=== PATIENT | female | born 1970 | race American Indian/Alaskan Native ===

== ENCOUNTER 2018-11-19 06:09 | Emergency (ER) | payer SELFPAY ==
[2018-11-19 06:20] VITALS: BP 131/79
--- NOTE | 2018-11-19 07:52 | Emergency Department Report ---
ED Female HPI - General Chief complaint: Skin/Abscess/Foreign Body Stated complaint: FB IN VAGINA Time Seen by Provider: 11/19/18 07:46 Source: patient Mode of arrival: Ambulatory Limitations: No Limitations - History of Present Illness Initial comments: A 48-year-old female to emergency Department complaining of pelvic pain, suspicious of having a condom. The vaginal canal about 3-4 days ago. States that she tried to remove it, but does not recall seeing in the condom, out from her vaginal area. MD Complaint: vaginal discharge, pelvic pain -: Gradual, days(s) (3) Location: suprapubic Radiation: suprapubic Severity: moderate Quality: cramping Consistency: constant Improves with: none Worsens with: urination Are you Now?: No Associated Symptoms: vaginal discharge, dysuria, other. denies: loss of appetite, hematuria - Related Data Sexually active: No Previous Rx's Medication Instructions Recorded Last Taken Type Fluconazole [Diflucan TAB] 150 mg PO ONCE #1 tablet 11/19/18 Unknown Rx Ketorolac [Toradol] 10 mg PO Q6H PRN #10 tablet 11/19/18 Unknown Rx Allergies Allergy/AdvReac Type Severity Reaction Status Date / Time No Known Allergies Allergy Unverified 11/19/18 06:19 ED Review of Systems ROS: Stated complaint: FB IN VAGINA Other details as noted in HPI Comment: All other systems reviewed and negative ED Past Medical Hx - Past Medical History Previous Medical History?: No - Surgical History Past Surgical History?: No - Social History Smoking Status: Never Smoker Substance Use Type: None - Medications Home Medications: Home Medications Medication Instructions Recorded Confirmed Last Taken Type Fluconazole [Diflucan TAB] 150 mg PO ONCE #1 tablet 11/19/18 Unknown Rx Ketorolac [Toradol] 10 mg PO Q6H PRN #10 tablet 11/19/18 Unknown Rx ED Physical Exam - General Limitations: No Limitations General appearance: alert, in no apparent distress - Head Head exam: Present: atraumatic, normocephalic - Eye Eye exam: Present: normal appearance, PERRL, EOMI Pupils: Present: normal accommodation - ENT ENT exam: Present: normal exam, normal orophraynx, mucous membranes moist, TM's normal bilaterally - Neck Neck exam: Present: normal inspection - Respiratory Respiratory exam: Present: normal lung sounds bilaterally. Absent: respiratory distress, wheezes, rales, rhonchi, chest wall tenderness, accessory muscle use, decreased breath sounds - Cardiovascular Cardiovascular Exam: Present: regular rate, normal rhythm. Absent: systolic murmur, diastolic murmur, rubs, gallop - GI/Abdominal GI/Abdominal exam: Present: soft, tenderness (suprapubic region with palpation. No CVA tenderness noted), normal bowel sounds - Speculum exam: Present: erythema, vaginal discharge, cervical discharge. Absent: vaginal bleeding, foreign body, laceration - Extremities Exam Extremities exam: Present: normal inspection - Back Exam Back exam: Present: normal inspection - Neurological Exam Neurological exam: Present: alert, oriented X3, CN II-XII intact - Psychiatric Psychiatric exam: Present: normal affect, normal mood - Skin Skin exam: Present: warm, dry, intact, normal color. Absent: rash ED Course Vital Signs 11/19/18 06:16 Temperature 98.4 F Pulse Rate 59 L Respiratory 18 Rate Blood Pressure 131/79 O2 Sat by Pulse 100 Oximetry ED Medical Decision Making - Radiology Data Radiology results: report reviewed (dorsum reported no uterine fibroids and ovarian cyst) - Medical Decision Making 48-year-old [place] female, with the potential foreign body to her vaginal canal which was not visualized on examination. Ultrasound reported did review her (of which she states she has had a history and uterine fibroid which was new to her history, per patient. Advised of the importance of following up with [employer]. She is stable at this present time. Pain is controlled no acute distress or eminent danger. No suggestion of an emergent condition present at this time. Critical care attestation.: If time is entered above; I have spent that time in minutes in the direct care of this critically ill patient, excluding procedure time. ED Disposition Clinical Impression: Vaginal discharge, Ovarian cyst, Leiomyoma Disposition: - TO HOME OR SELFCARE Is pt being admited?: No Does the pt Need Aspirin: No Condition: Stable Instructions: Uterine Fibroids (ED), Vaginitis (ED), Ovarian Cyst (ED) Prescriptions: Fluconazole [Diflucan TAB] 150 mg PO ONCE #1 tablet Ketorolac [Toradol] 10 mg PO Q6H PRN #10 tablet PRN Reason: Pain Referrals: MARYANA CRARERO MD [Primary Care Provider] - 3-5 Days
[2018-11-19 07:53] LABS: Bilirubin,Urine NEG (Negative); Blood,Urine NEG (Negative); Color,Urine Yellow (Yellow); Mucus,Urine 1+ /HPF; Protein,Urine <15 mg/dL mg/dL (Negative); Urobilinogen,Urine < 2.0 mg/dL (<2.0)
[2018-11-19 08:04] LABS: HCG Qualitative,Urine Negative (Negative)
--- NOTE | 2018-11-19 09:36 | Ultrasound Report ---
ULTRASOUND PELVIS, COMPLETE INDICATION: Pelvic pain, vaginal discharge COMPARISON: No relevant prior imaging study available. FINDINGS: Transabdominal and transvaginal imaging was performed. Uterus: Uterus measures 10.3 x 5.9 x 5.4 cm. Endometrial echo complex measures 12-13 mm.. Heterogeneo usly hypoechoic 2.5 cm focus in the uterine fundus may be a uterine fibroid. Right ovary: Not visualized. Left ovary: There is a 2 cm left ovarian cyst. Flow is seen left ovary.. Additional findings: There is no free fluid in the pelvis. Urinary bladder is unremarkable. IMPRESSION: 1. The endometrial echo complex measures 12-13 mm which is at the upper limits of normal for a premen opausal patient. 2. Probable 2.5 cm uterine fibroid. 3. 2 cm left ovarian cyst. 4. The right ovary is not visualized.. Signer Name: Brain Tan MD Signed: 11/19/2018 9:32 AM Workstation Name: [id number]
== END 2018-11-19 12:33 | disposition home or self-care (01) ==
LOC: ED 06:09
DX: N83.202 Unspecified ovarian cyst, left side (principal); D25.9 Leiomyoma of uterus, unspecified; Z79.899 Other long term (current) drug therapy
CPT/HCPCS: 76830; 76856; 81001; 81025

== ENCOUNTER 2021-03-02 12:53 | Emergency (ER) | payer SELFPAY ==
--- NOTE | 2021-03-02 13:06 | Emergency Department Report ---
ED ENT HPI - General Chief complaint: Dental/Oral Stated complaint: TOOTH BROKEN/FACE SWOLLEN Time Seen by Provider: 03/02/21 13:00 Source: patient Mode of arrival: Ambulatory Limitations: No Limitations - History of Present Illness Initial comments: 51-year-old -Spanish female presents to the emergency room complaining of right upper jaw pain and swelling since Wednesday. Patient states she feels she broken a tooth. She has tried taking Tylenol ibuprofen without much relief. She does have a primary dentist but will have to make an appointment with them this week. She denies any other complaints. MD complaint: tooth pain Onset/Timin -: days(s) Location: tooth # (4) Severity: severe Severity scale (0 -10): 8 Quality: stabbing, sharp Consistency: constant Improves with: none Worsens with: eating Context- Dental: trauma - Related Data Previous Rx's Medication Instructions Recorded Last Taken Type Fluconazole (Nf) [Diflucan TAB] 150 mg PO ONCE #1 tablet 11/19/18 Unknown Rx Amoxicillin/K Clav Tab [Augmentin 1 tab PO Q12HR 7 Days #14 tab 03/02/21 Unknown Rx 875 mg] Ketorolac [Toradol] 10 mg PO Q6H PRN #10 tablet 03/02/21 Unknown Rx Allergies Allergy/AdvReac Type Severity Reaction Status Date / Time No Known Allergies Allergy Verified 03/02/21 12:59 ED Dental HPI - General Chief complaint: Dental/Oral Stated complaint: TOOTH BROKEN/FACE SWOLLEN Time Seen by Provider: 03/02/21 13:00 Source: patient Mode of arrival: Ambulatory Limitations: No Limitations - Related Data Previous Rx's Medication Instructions Recorded Last Taken Type Fluconazole (Nf) [Diflucan TAB] 150 mg PO ONCE #1 tablet 11/19/18 Unknown Rx Amoxicillin/K Clav Tab [Augmentin 1 tab PO Q12HR 7 Days #14 tab 03/02/21 Unknown Rx 875 mg] Ketorolac [Toradol] 10 mg PO Q6H PRN #10 tablet 03/02/21 Unknown Rx Allergies Allergy/AdvReac Type Severity Reaction Status Date / Time No Known Allergies Allergy Verified 03/02/21 12:59 ED Review of Systems ROS: Stated complaint: TOOTH BROKEN/FACE SWOLLEN Other details as noted in HPI Comment: All other systems reviewed and negative ED Past Medical Hx - Social History Smoking Status: Never Smoker Substance Use Type: None - Medications Home Medications: Home Medications Medication Instructions Recorded Confirmed Last Taken Type Fluconazole (Nf) [Diflucan TAB] 150 mg PO ONCE #1 tablet 11/19/18 Unknown Rx Amoxicillin/K Clav Tab [Augmentin 1 tab PO Q12HR 7 Days #14 tab 03/02/21 Unknown Rx 875 mg] Ketorolac [Toradol] 10 mg PO Q6H PRN #10 tablet 03/02/21 Unknown Rx ED Physical Exam - General Limitations: No Limitations General appearance: alert, in no apparent distress - Head Head exam: Present: atraumatic, normocephalic - Eye Eye exam: Present: normal appearance - ENT ENT exam: Present: mucous membranes moist - Expanded ENT Exam Expanded Teeth exam: Present: fractured tooth # (4), gingival enlargement Throat exam: Positive: normal inspection - Neck Neck exam: Present: normal inspection - Respiratory Respiratory exam: Present: normal lung sounds bilaterally. Absent: respiratory distress - Cardiovascular Cardiovascular Exam: Present: regular rate, normal rhythm. Absent: systolic murmur, diastolic murmur, rubs, gallop - GI/Abdominal GI/Abdominal exam: Present: soft, normal bowel sounds - Extremities Exam Extremities exam: Present: normal inspection - Back Exam Back exam: Present: normal inspection - Neurological Exam Neurological exam: Present: alert, oriented X3 - Psychiatric Psychiatric exam: Present: normal affect, normal mood - Skin Skin exam: Present: warm, dry, intact, normal color. Absent: rash ED Course Vital Signs 03/02/21 13:00 Temperature 98.6 F Pulse Rate 74 Respiratory 16 Rate Blood Pressure 137/77 O2 Sat by Pulse 100 Oximetry ED Medical Decision Making - Medical Decision Making 51-year-old -Spanish female presents to the emergency room complaining of right upper jaw pain and swelling since Wednesday. Patient states she feels she broken a tooth. She has tried taking Tylenol ibuprofen without much relief. She does have a primary dentist but will have to make an appointment with them this week. She denies any other complaints. Patient will be treated for dental abscess and dental pain with Augmentin Toradol and to follow-up with a dentist. Critical care attestation.: If time is entered above; I have spent that time in minutes in the direct care of this critically ill patient, excluding procedure time. ED Disposition Clinical Impression: Dental abscess, Fracture, tooth Disposition: 01 HOME / SELF CARE / HOMELESS Is pt being admited?: No Does the pt Need Aspirin: No Condition: Stable Instructions: Dental Abscess, [id number], Tooth Injuries, [id number] Additional Instructions: complete antibiotics. Pain medication as needed. Follow up with a dentist. Prescriptions: Amoxicillin/K Clav Tab [Augmentin 875 mg] 1 tab PO Q12HR 7 Days #14 tab Ketorolac [Toradol] 10 mg PO Q6H PRN #10 tablet PRN Reason: Pain Referrals: [facility] [Outside] - 3-5 Days [facility] [Outside] - 3-5 Days [facility] [Outside] - 3-5 Days Forms: Work/School Release Form(ED) Time of Disposition: 13:07
[2021-03-02 13:10] VITALS: BP 137/77
== END 2021-03-02 13:53 | disposition home or self-care (01) ==
LOC: ED 12:53
DX: S02.5XXA Fracture of tooth (traumatic), initial encounter for closed fracture (principal); K04.7 Periapical abscess without sinus; Z79.899 Other long term (current) drug therapy; X58.XXXA Exposure to other specified factors, initial encounter; Y93.89 Activity, other specified; Y92.89 Other specified places as the place of occurrence of the external cause; Y99.8 Other external cause status
CPT/HCPCS: 99281

== ENCOUNTER 2021-05-11 08:37 | Emergency (ER) | payer SELFPAY ==
[2021-05-11 08:58] VITALS: BP 148/90
--- NOTE | 2021-05-11 09:37 | Emergency Department Report ---
ED ENT HPI - General Chief complaint: Dental/Oral Stated complaint: FACE,MOUTH SWOLLEN Source: patient Mode of arrival: Ambulatory Limitations: No Limitations - History of Present Illness Initial comments: 51-year-old female complaining tooth ache x 4 days . States that she noticed a pus pocket above the her tooth and expelled . Since she expelled she noticed increased swelling around the tooth. She states that she has been using ice to decrease the swelling which has helped taking [id number] analgesic Tylenol and Motrin with relief . Patient do not have a dentist at present time. Patient has mild edema noted to the left jaw area at present. No trismus noted .no drooling noted. Uvula almost is midline. Patient is alert and oriented x4. No acute distress noted. no ill appearance noted MD complaint: tooth pain Onset/Timin -: days(s) Location: tooth # Severity scale (0 -10): 5 Improves with: cold therapy, NSAID Associated Symptoms: gum swelling, toothache. denies: fever, pain with swallowing, sore throat, discharge from ear, rhinorrhea - Related Data Previous Rx's Medication Instructions Recorded Last Taken Type Fluconazole (Nf) [Diflucan TAB] 150 mg PO ONCE #1 tablet 11/19/18 Unknown Rx Amoxicillin/K Clav Tab [Augmentin 1 tab PO Q12HR 7 Days #14 tab 03/02/21 Unknown Rx 875 mg] Ketorolac [Toradol] 10 mg PO Q6H PRN #10 tablet 03/02/21 Unknown Rx Acetaminophen/Codeine [Tylenol 1 tab PO Q6H PRN 3 Days #12 tab 05/11/21 Unknown Rx /Codeine # 3 tab] Clindamycin [Clindamycin CAP] 300 mg PO Q6H 7 Days #28 cap 05/11/21 Unknown Rx Ibuprofen [Motrin 800 MG tab] 800 mg PO Q8HR PRN 15 Days #30 05/11/21 Unknown Rx tablet Allergies Allergy/AdvReac Type Severity Reaction Status Date / Time No Known Allergies Allergy Verified 03/02/21 12:59 ED Dental HPI - General Chief complaint: Dental/Oral Stated complaint: FACE,MOUTH SWOLLEN Source: patient Mode of arrival: Ambulatory Limitations: No Limitations - Related Data Previous Rx's Medication Instructions Recorded Last Taken Type Fluconazole (Nf) [Diflucan TAB] 150 mg PO ONCE #1 tablet 11/19/18 Unknown Rx Amoxicillin/K Clav Tab [Augmentin 1 tab PO Q12HR 7 Days #14 tab 03/02/21 Unknown Rx 875 mg] Ketorolac [Toradol] 10 mg PO Q6H PRN #10 tablet 03/02/21 Unknown Rx Acetaminophen/Codeine [Tylenol 1 tab PO Q6H PRN 3 Days #12 tab 05/11/21 Unknown Rx /Codeine # 3 tab] Clindamycin [Clindamycin CAP] 300 mg PO Q6H 7 Days #28 cap 05/11/21 Unknown Rx Ibuprofen [Motrin 800 MG tab] 800 mg PO Q8HR PRN 15 Days #30 05/11/21 Unknown Rx tablet Allergies Allergy/AdvReac Type Severity Reaction Status Date / Time No Known Allergies Allergy Verified 03/02/21 12:59 ED Review of Systems ROS: Stated complaint: FACE,MOUTH SWOLLEN Other details as noted in HPI Constitutional: denies: chills, fever Eyes: denies: eye pain, eye discharge, vision change ENT: dental pain. denies: ear pain, throat pain Respiratory: denies: cough, shortness of breath, wheezing Cardiovascular: denies: chest pain, palpitations Endocrine: no symptoms reported Gastrointestinal: denies: abdominal pain, nausea, diarrhea Genitourinary: denies: urgency, dysuria, discharge Musculoskeletal: denies: back pain, joint swelling, arthralgia Skin: denies: rash, lesions Neurological: denies: headache, weakness, paresthesias Psychiatric: denies: anxiety, depression Hematological/Lymphatic: denies: easy bleeding, easy bruising ED Past Medical Hx - Social History Smoking Status: Never Smoker Substance Use Type: None - Medications Home Medications: Home Medications Medication Instructions Recorded Confirmed Last Taken Type Fluconazole (Nf) [Diflucan TAB] 150 mg PO ONCE #1 tablet 11/19/18 Unknown Rx Amoxicillin/K Clav Tab [Augmentin 1 tab PO Q12HR 7 Days #14 tab 03/02/21 Unknown Rx 875 mg] Ketorolac [Toradol] 10 mg PO Q6H PRN #10 tablet 03/02/21 Unknown Rx Acetaminophen/Codeine [Tylenol 1 tab PO Q6H PRN 3 Days #12 tab 05/11/21 Unknown Rx /Codeine # 3 tab] Clindamycin [Clindamycin CAP] 300 mg PO Q6H 7 Days #28 cap 05/11/21 Unknown Rx Ibuprofen [Motrin 800 MG tab] 800 mg PO Q8HR PRN 15 Days #30 05/11/21 Unknown Rx tablet ED Physical Exam - General Limitations: No Limitations General appearance: alert, in no apparent distress - Head Head exam: Present: atraumatic, normocephalic - Eye Eye exam: Present: normal appearance - ENT ENT exam: Present: mucous membranes moist - Expanded ENT Exam Expanded Teeth exam: Present: dental caries - Neck Neck exam: Present: normal inspection - Respiratory Respiratory exam: Present: normal lung sounds bilaterally. Absent: respiratory distress - Cardiovascular Cardiovascular Exam: Present: regular rate, normal rhythm. Absent: systolic murmur, diastolic murmur, rubs, gallop - GI/Abdominal GI/Abdominal exam: Present: soft, normal bowel sounds - Extremities Exam Extremities exam: Present: normal inspection - Back Exam Back exam: Present: normal inspection - Neurological Exam Neurological exam: Present: alert, oriented X3 - Psychiatric Psychiatric exam: Present: normal affect, normal mood - Skin Skin exam: Present: warm, dry, intact, normal color. Absent: rash ED Course Vital Signs 05/11/21 08:57 Temperature 98.7 F Pulse Rate 81 Respiratory 20 Rate Blood Pressure 148/90 [Right] O2 Sat by Pulse 99 Oximetry ED Medical Decision Making - Medical Decision Making 51-year-old female complaining tooth ache x 4 days . States that she noticed a pus pocket above the her tooth and expelled . Since she expelled she noticed increased swelling around the tooth. She states that she has been using ice to decrease the swelling which has helped taking [id number] analgesic Tylenol and Motrin with relief . Patient do not have a dentist at present time. Patient has mild edema noted to the left jaw area at present. No trismus noted .no drooling noted. Uvula almost is midline. Patient is alert and oriented x4. No acute distress noted. no ill appearance noted All teeth are intact dental cavity noted teeth numbers tooth #5. Patient to follow-up with dentist. Discharge instruction given and dental follow-up given start on antibiotic therapy. Critical care attestation.: If time is entered above; I have spent that time in minutes in the direct care of this critically ill patient, excluding procedure time. ED Disposition Clinical Impression: Dental abscess Disposition: HOME / SELF CARE / HOMELESS Is pt being admited?: No Does the pt Need Aspirin: No Condition: Stable Instructions: Dental Abscess, [id number] Additional Instructions: Follow-up with dentist take antibiotic as prescribed Drink plenty of fluids Continue to use cold therapy to help Prescriptions: Clindamycin [Clindamycin CAP] 300 mg PO Q6H 7 Days #28 cap Ibuprofen [Motrin 800 MG tab] 800 mg PO Q8HR PRN 15 Days #30 tablet PRN Reason: Pain, Moderate (4-6) Acetaminophen/Codeine [Tylenol /Codeine # 3 tab] 1 tab PO Q6H PRN 3 Days #12 tab PRN Reason: Pain, Moderate (4-6) Forms: Work/School Release Form(ED)
== END 2021-05-11 10:08 | disposition home or self-care (01) ==
LOC: ED 08:37
DX: K04.7 Periapical abscess without sinus (principal); Z79.899 Other long term (current) drug therapy
CPT/HCPCS: 99282